=== PATIENT | male | born 1990 ===

== ENCOUNTER 2017-08-17 03:50 | Emergency (ER) | payer SELFPAY ==
--- NOTE | 2017-08-17 04:19 | ED PDOC ---
Arrival/HPI - General Chief Complaint: Trauma Time Seen by Provider: 08/17/17 04:13 Historian: Patient - History of Present Illness Narrative History of Present Illness (Text): 08/17/17 04:18 Donny Choudhury is a 26 year old male, with no significant past medical history, who presents to the Emergency department brought in by EMS status post fall tonight. As per relative, patient fell while in the shower and began bleeding from nose. Relative notes patient was drinking alcohol tonight. Limited HPI and ROS secondary to patient's intoxication. Time/Duration: Prior to Arrival Symptom Onset: Sudden Symptom Course: Unchanged Activities at Onset: Light Context: Home Past Medical History - Provider Review Nursing Documentation Reviewed: Yes - Psychiatric Hx Psychophysiologic Disorder: (unknown) Hx Substance Use: No - Anesthesia Hx Anesthesia: No Family/Social History - Physician Review Nursing Documentation Reviewed: Yes Family/Social History: Unknown Family HX Smoking Status: Never Smoked Hx Alcohol Use: Yes Frequency of alcohol use: Socially Hx Substance Use: No Allergies/Home Meds Allergies/Adverse Reactions: Allergies No Known Allergies Allergy (Verified 08/17/17 04:43) Review of Systems - Review of Systems Systems not reviewed;Unavailable: Intoxicated Physical Exam Vital Signs Reviewed: Yes Vital Signs Temp Pulse Resp BP Pulse Ox 08/17/17 06:41 71 18 111/56 L 96 08/17/17 04:00 98.9 F 74 20 134/65 98 08/17/17 03:51 75 20 134/65 98 Temperature: Afebrile Blood Pressure: Normal Pulse: Regular Respiratory Rate: Normal Appearance: Positive for: Well-Appearing, Non-Toxic, Comfortable Pain Distress: None Mental Status: Positive for: other (Grossly inebriated) - Systems Exam Head: Present: Atraumatic, Normocephalic Pupils: Present: PERRL Extroacular Muscles: Present: EOMI Conjunctiva: Present: Normal Ears: Present: Normal, NORMAL TM, Normal Canal. No: Erythema, TM Bulging, Fluid , TM Perf Mouth: Present: Moist Mucous Membranes Pharnyx: Present: Normal. No: ERYTHEMA, EXUDATE, TONSILS ENLARGED, Uvular Deviation, Muffled/Hoarse Voice, Strider Nose (External): Present: Atraumatic Nose (Internal): Present: No Active Bleeding (Dry blood in left nares) Neck: Present: Normal Range of Motion. No: Meningeal Signs, MIDLINE TENDERNESS , Paraspinal Tenderness Respiratory/Chest: Present: Clear to Auscultation, Good Air Exchange. No: Respiratory Distress, Accessory Muscle Use Cardiovascular: Present: Regular Rate and Rhythm, Normal S1, S2. No: Murmurs Abdomen: No: Tenderness, Distention, Peritoneal Signs Back: Present: Normal Inspection. No: CVA Tenderness, Midline Tenderness, Paraspinal Tenderness Upper Extremity: Present: Normal Inspection, Normal ROM, NORMAL PULSES, Neurovascularly Intact, Capillary Refill < 2s. No: Cyanosis, Edema, Tenderness , Swelling, Erythema, Temperature Abnormalties, Deformity Lower Extremity: Present: Normal Inspection, NORMAL PULSES, Normal ROM, Neurovascularly Intact, Capillary Refill < 2 s. No: Edema, CALF TENDERNESS, Cyanosis, Tenderness, Swelling, Erythema, Deformity, Temperature Abnormalties Neurological: Present: GCS=15, CN II-XII Intact Skin: Present: Warm, Dry, Normal Color. No: Rashes Psychiatric: Present: Intoxicated Medical Decision Making ED Course and Treatment: 08/17/17 04:18 Impression: 26 year old male brought in s/p fall in the shower SE[facility]. Plan: -- CT Head w/o contrast -- CT Maxillofacial w/o contrast -- Labs, alcohol level -- Reassess and disposition Progress Notes: 08/17/17 05:57 Reviewed radiology, CT Head shows: Brain: Unremarkable. No hemorrhage. No significant white matter disease. No edema. Ventricles: Unremarkable. No ventriculomegaly. Bones/joints: Age-indeterminate nasal bone fracture. Soft tissues: Unremarkable. Sinuses: Unremarkable as visualized. No acute sinusitis. Mastoid air cells: Unremarkable as visualized. No mastoid effusion. IMPRESSION: Age-indeterminate nasal bone fracture. No definite acute intracranial abnormality. CT Maxillofacial shows: Bones/joints: Probable age indeterminate nasal bone fracture. Soft tissues: Unremarkable. Orbits: Unremarkable. Sinuses: Unremarkable. No air-fluid levels. IMPRESSION: Probable age indeterminate nasal bone fracture. 08/17/17 06:35 On re-evaluation, pt is awake, alert, in no acute distress. Discussed results with pt and family, who are aware and verbalize understanding. Pt d/c to care of family. - Lab Interpretations Lab Results: 08/17/17 05:11 08/17/17 05:11 Lab Results 08/17/17 05:11: Urine Opiates Screen Negative, Urine Methadone Screen Negative, Ur Barbiturates Screen Negative, Ur Phencyclidine Scrn Negative, Ur Amphetamines Screen Negative, U Benzodiazepines Scrn Negative, U Oth Cocaine Metabols Negative, U Cannabinoids Screen Negative 08/17/17 05:11: Alcohol, Quantitative 129 H 08/17/17 05:11: WBC 7.5, RBC 4.92, Hgb 15.3, Hct 43.4, MCV 88.2, MCH 31.1, MCHC 35.3, RDW 13.2, Plt Count 308, MPV 8.8 08/17/17 05:11: Sodium 149 H, Potassium 3.5 L, Chloride 108 H, Carbon Dioxide 23 , Anion Gap 22 H, BUN 13, Creatinine 0.9, Est GFR ( Amer) > 60, Est GFR ( Non-Af Amer) > 60, Random Glucose 99, Calcium 9.0, Total Bilirubin 0.9, AST 36, ALT 26, Alkaline Phosphatase 59, Total Protein 8.4 H, Albumin 4.7, Globulin 3.7 , Albumin/Globulin Ratio 1.3 I have reviewed the lab results: Yes - RAD Interpretation Radiology Orders: 08/17/17 04:20 HEAD W/O CONTRAST [CT] Stat 08/17/17 04:21 MAXILLOFACIAL W/O CONTRAST [CT] Stat Assembler Adjuster: Radiologist - Scribe Statement The provider has reviewed the documentation as recorded by the Yuliya Bear Provider Scribe Attestation: All medical record entries made by the Scribe were at my direction and personally dictated by me. I have reviewed the chart and agree that the record accurately reflects my personal performance of the history, physical exam, medical decision making, and the department course for this patient. I have also personally directed, reviewed, and agree with the discharge instructions and disposition. Disposition/Present on Arrival - Present on Arrival Any Indicators Present on Arrival: No History of DVT/PE: No History of Uncontrolled Diabetes: No Urinary Catheter: No History of Decub. Ulcer: No History Surgical Site Infection Following: None - Disposition Have Diagnosis and Disposition been Completed?: Yes Diagnosis: Alcohol intoxication, Nasal fracture Disposition: HOME/ ROUTINE Disposition Time: 06:50 Patient Plan: Discharge Condition: GOOD Discharge Instructions (ExitCare): Nose Fracture (DC), Alcohol Abuse and Alcoholism (DC) Additional Instructions: Dont drink alcohol/follow up with the ear/nose/throat doctor this week Referrals: Sohan Rubio, [Staff Provider] - Follow up with primary Alcoholics Anonymous [Outside] - Follow up with primary Forms: [facility] ([place] Citizen)
[2017-08-17 05:47] LABS: HEMOGLOBIN 15.3 g/dL (14.0-18.0); MEAN CELL VOLUME 88.2 fl (80.0-105.0); MEAN CORPUSCULAR HEMOGLOBIN 31.1 pg (25.0-35.0); MEAN CORPUSCULAR HGB CONC 35.3 g/dl (31.0-37.0); MEAN PLATELET VOLUME 8.8 fl (7.0-11.0); RBC 4.92 10^6/uL (3.5-6.1); RED CELL DISTRIBUTION WIDTH 13.2 % (11.5-14.5); WHITE BLOOD COUNT 7.5 10^3/ul (4.5-11.0)
[2017-08-17 06:11] LABS: ALB/GLOB RATIO 1.3 (1.1-1.8); ALBUMIN 4.7 g/dL (3.0-4.8); ALT/SGPT 26 U/L (7-56); AST/SGOT 36 U/L (17-59); BLOOD UREA NITROGEN 13 mg/dL (7-21); GFR AFRICAN-AMERICAN > 60; GFR NON-AFRICAN AMERICAN > 60
[2017-08-17 06:41] LABS: BARBITURATES, UR NEGATIVE (NEGATIVE); BENZODIAZEPINES, UR NEGATIVE (NEGATIVE); OPIATES, UR NEGATIVE (NEGATIVE); PHENCYCLIDINE, UR NEGATIVE (NEGATIVE)
[2017-08-17 06:42] VITALS: BP 111/56; PULSE 71; RESP 18; TEMP 98.9; O2SAT 96
--- NOTE | 2017-08-17 08:29 | CT ---
PROCEDURE: CT HEAD WITHOUT CONTRAST. HISTORY: fell/injury COMPARISON: None available. TECHNIQUE: Axial computed tomography images were obtained through the head/brain without intravenous contrast. Coronal and sagittal reconstructed images. Radiation dose: Total exam DLP = 955.81 mGy-cm. This CT exam was performed using one or more of the following dose reduction techniques: Automated exposure control, adjustment of the mA and/or kV according to patient size, and/or use of iterative reconstruction technique. FINDINGS: HEMORRHAGE: No intracranial hemorrhage. BRAIN: No mass effect or edema. No atrophy or chronic microvascular ischemic changes. VENTRICLES: Unremarkable. No hydrocephalus. CALVARIUM: Unremarkable. PARANASAL SINUSES: Unremarkable as visualized. No significant inflammatory changes. MASTOID AIR CELLS: Unremarkable as visualized. No inflammatory changes. OTHER FINDINGS: None. IMPRESSION: No acute intracranial abnormalities. No significant findings to account for the clinical presentation. Concordant results (preliminary interpretation) provided by [email or web address]. Procedure Completed: 04:35. Preliminary ([facility]) Report: Dictated and Authenticated: 06:32. Final Interpretation: 08:27. August 17, 2017.
--- NOTE | 2017-08-17 08:31 | CT ---
PROCEDURE: CT MAXILLOFACIAL BONES WITHOUT CONTRAST HISTORY: nasal/facial injury COMPARISON: None TECHNIQUE: Contiguous axial CT images of the maxillofacial bones were obtained. Coronal and sagittal reformats were generated. Radiation dose: Total exam DLP = 846.89 mGy-cm. This CT exam was performed using one or more of the following dose reduction techniques: Automated exposure control, adjustment of the mA and/or kV according to patient size, and/or use of iterative reconstruction technique. FINDINGS: NASAL BONES: Nondisplaced nasal bone fractures likely bold based on the absence of appreciable soft tissue swelling. ORBITS: Unremarkable. PARANASAL SINUSES/ MASTOIDS: Clear. MAXILLA: Unremarkable. MANDIBLE/ TEMPOROMANDIBULAR JOINTS: Unremarkable. SKULL BASE: Unremarkable. TEMPORAL BONES: Middle ears and mastoid grossly unremarkable. OTHER FINDINGS: None. IMPRESSION: No acute findings related to/accounting for the clinical presentation. Concordant results (preliminary interpretation) provided by [facility]. Procedure Completed: 04:40 Preliminary ([facility]) Report: Dictated and Authenticated: 05:58 Final Interpretation: 08:30 August 17, 2017.
== END 2017-08-17 07:13 | disposition home or self-care (01) ==
LOC: ED 03:50
DX: S02.2XXA Fracture of nasal bones, initial encounter for closed fracture (principal); F10.129 Alcohol abuse with intoxication, unspecified; W18.30XA Fall on same level, unspecified, initial encounter; Y93.E1 Activity, personal bathing and showering
CPT/HCPCS: 70450; 70486; 80053; 85027; 99284; G0480